=== PATIENT | female | born 1960 | race Caucasian/White ===

== ENCOUNTER → 2017-12-08 | Day surgery (SDC) | payer OTHER ==
[~2017-12-08] VITALS: Ht 147.3 cm; Wt 98.0 kg
[~2017-12-08] MED LIST: ALPRAZOLAM0.25 M1 PO; DYMISTA NASAL S23 GM NASB; INCRUSE ELLI62.5 MCG INH; LEVOCETIRIZINE D5 M1 PO; LIPITOR20 M2 PO; LOSARTAN POTAS100 M1 PO; METFORMIN HCL500 M3 PO; METOPROLOL TART25 M1 PO; MONTELUKAST SOD10 M1 PO; PERFOROMIS20 MCG/21 INH; PROAIR HFA8.5 GM INH; PULMICORT0.25 MG/3 INH/SOL; TRAZODONE HCL50 M1 PO; VITAMIN D250000 UNIT PO; ZOLOFT25 M1 PO
--- NOTE | 2017-12-08 11:30 | Operative Report ---
See Addendum Operative/Inv Procedure Report Surgery Date: 12/08/17 Name of Procedure: Right partial mastectomy and sentinel lymph node biopsy Pre-Operative Diagnosis: Right breast cancer Post-Operative Diagnosis: Same Estimated Blood Loss: less than 50ml Surgeon/Dairy Powder Mixer Operator: Angela Gómez MD Anesthesia: laryngeal mask airway Specimens: Right lumpectomy, cranial margin, caudal margin, medial margin, lateral margin, deep margin, sentinel lymph node 2 Operative/Procedure Note Note: Patient is status post needle biopsy showed invasive carcinoma. She is clinically negative lymph nodes. She was brought to the operating room for a partial mastectomy and sentinel lymph node biopsy. She is brought to the operating room and given 2 g of Ancef. Laryngeal mask airway anesthesia was administered and the right breast prepped and draped in sterile fashion using ChloraPrep. Lidocaine mixed with Marcaine was used for local anesthesia. A skin ellipse was created above and below the palpable mass at 9:00 in the right breast. A wide lumpectomy was created down to the pectoralis fascia. The specimen was removed and marked for orientation and margin map. Intraoperative x-ray confirmed the presence of the clip in the specimen. Additional margins were taken widely in the cranial and caudal positions as those were felt to be close. Medial, lateral, and deep margins were also taken. The margins a lumpectomy were marked using mammary clips given the size of the cavity. The axilla was approached through the lumpectomy incision. 2 sentinel lymph nodes were identified. One of the lymph nodes was deep in the axilla adjacent to the chest wall. Hemostasis was achieved using electrocautery. Deep tissue was approximated using interrupted Vicryl sutures and the skin was closed using a running Biosyn subcuticular stitch. Steri-Strips and sterile dressings were applied and the patient is transferred to the recovery room in satisfactory condition having tolerated the procedure well.
--- NOTE | 2017-12-09 11:53 | MAMMOGRAPHY REPORT ---
EXAMINATION: MM SPECIMEN FROM THE BREAST, RIGHT CLINICAL INDICATION: Specimen radiograph of the lumpectomy performed in the OR. COMPARISON: None TECHNIQUE: Single specimen radiograph was performed. FINDINGS: The radiograph of the excised surgical specimen shows that a masslike density with apparent associated architectural distortion and spiculation has been excised with a marker clip seen in place. IMPRESSION: Specimen radiography of the excised specimen shows a spiculated mass with associated biopsy clip.
== END ==
LOC: STS 01:04
DX: C50.811 Malignant neoplasm of overlapping sites of right female breast (principal); C77.3 Secondary and unspecified malignant neoplasm of axilla and upper limb lymph nodes; Z17.0 Estrogen receptor positive status [ER+]; J44.9 Chronic obstructive pulmonary disease, unspecified; J45.909 Unspecified asthma, uncomplicated; E11.9 Type 2 diabetes mellitus without complications; I10 Essential (primary) hypertension; F17.200 Nicotine dependence, unspecified, uncomplicated; E66.9 Obesity, unspecified; Z68.42 Body mass index [BMI] 45.0-49.9, adult; Z79.84 Long term (current) use of oral hypoglycemic drugs
CPT/HCPCS: 88305; 88307; C9399; J0131; J0690; J2250; J3490; Q9968